=== PATIENT | male | born 1955 | race Two or more races ===

== ENCOUNTER → 2020-11-11 | Outpatient (CLI) | payer MEDICARE, BC ==
[~2020-11-11] VITALS: Ht 175.3 cm; Wt 119.0 kg
[2020-11-11 12:47] VITALS: BP 120/65
== END | disposition home or self-care (01) ==
LOC: SRCNTR 11:41
PROVIDERS: ATTEND Internal Medicine Critical Care Medicine
DX: I10 Essential (primary) hypertension (principal); G47.33 Obstructive sleep apnea (adult) (pediatric); J84.10 Pulmonary fibrosis, unspecified
CPT/HCPCS: G0463; Z7500